=== PATIENT | female | born 1995 | race African-American/Black ===

== ENCOUNTER 2016-12-07 18:16 | Emergency (ER) | payer MEDICAID ==
[~2016-12-07] VITALS: Ht 170.2 cm; Wt 88.0 kg
[2016-12-07] MEDS ORDERED: LIDOCAINE HCL 1% 20ML VIAL (Pyxis) INJ MC ONE (22:15)
[2016-12-07] MEDS ORDERED: AZITHROMYCIN 500 MG TABLET PO ONE (22:15)
[2016-12-07] MEDS ORDERED: CEFTRIAXONE SODIUM 250 MG/VIAL IM ONE (22:15)
[2016-12-07 22:50] LABS: CLARITY URINE CLEAR (CLEAR); COLOR URINE YELLOW (YELLOW); GLUCOSE URINE NEGATIVE (NEGATIVE); KETONES URINE TRACE (NEGATIVE); LEUKOCYTE ESTERASE URINE NEGATIVE (NEGATIVE); NITRITE URINE NEGATIVE (NEGATIVE); OCCULT BLOOD URINE NEGATIVE (NEGATIVE); PH URINE 5.5 (4.5-8.0); PROTEIN URINE NEGATIVE (NEGATIVE); SPECIFIC GRAVITY URINE 1.033 (1.005-1.030)
[2016-12-07] MEDS ORDERED: IBUPROFEN 600MG TABLET PO ONE (23:45)
[2016-12-08] VITALS: BP 116/67
== END 2016-12-08 00:38 | disposition home or self-care (01) ==
LOC: ER 18:18
DX: S60.561A Insect bite (nonvenomous) of right hand, initial encounter (principal); S30.860A Insect bite (nonvenomous) of lower back and pelvis, initial encounter; N76.0 Acute vaginitis; W57.XXXA Bitten or stung by nonvenomous insect and other nonvenomous arthropods, initial encounter; F17.210 Nicotine dependence, cigarettes, uncomplicated; Y93.89 Activity, other specified; Y92.59 Other trade areas as the place of occurrence of the external cause; Y99.8 Other external cause status
CPT/HCPCS: 81003; 81025; 96372; 99283; J0696; J3490

== ENCOUNTER 2018-12-04 12:40 | Emergency (ER) | payer SELFPAY ==
[~2018-12-04] VITALS: Ht 170.2 cm; Wt 87.0 kg
[2018-12-04 12:51] VITALS: BP 118/74
[2018-12-04] MEDS ORDERED: ONDANSETRON 4MG ODT PO ONE (16:15)
[2018-12-04] MEDS ORDERED: CEFTRIAXONE SODIUM 250 MG/VIAL IM ONE (16:15)
[2018-12-04] MEDS ORDERED: AZITHROMYCIN 500 MG TABLET PO ONE (16:15)
[2018-12-04] MEDS ORDERED: TETANUS, DIPHTHERIA, PERTUSSIS VAC/PF 0.5ML (>7YR OLD) IM ONE (16:30)
== END 2018-12-04 17:36 | disposition home or self-care (01) ==
LOC: ER 12:40
DX: S60.511A Abrasion of right hand, initial encounter (principal); S80.811A Abrasion, right lower leg, initial encounter; S61.451A Open bite of right hand, initial encounter; Z20.2 Contact with and (suspected) exposure to infections with a predominantly sexual mode of transmission; E66.9 Obesity, unspecified; Z68.30 Body mass index [BMI] 30.0-30.9, adult; Y04.1XXA Assault by human bite, initial encounter; Y93.89 Activity, other specified; Y92.89 Other specified places as the place of occurrence of the external cause; Y99.8 Other external cause status
CPT/HCPCS: 73130; 81025; 90471; 90715; 96372; 99283; J0696; Q0162